=== PATIENT | female | born 1955 | race Caucasian/White ===

== ENCOUNTER → 2016-08-28 | Outpatient (CLI) | payer OTHER ==
[~2016-08-28] MED LIST: ASPIRIN E.C. 8181 MG PO; CARDIZEM 30MG T30 MG PO; GLUCOTROL10 MG PO; LANTUS100 U/ML SQ; LIPITOR 40MG TA40 MG PO; MICARDIS HCT 121 TAB PO; MICARDIS80 MG PO; NORCO 325 MG-51 TAB PO; TANZEUM SQ; ZOCOR 40MG40 MG PO
== END ==
LOC: COL.RAD 11:27
DX: N18.3 Chronic kidney disease, stage 3 (moderate) (principal); N13.39 Other hydronephrosis

== ENCOUNTER → 2016-11-06 | Outpatient (CLI) | payer OTHER | LOC: COL.RAD 08:30 | DX: N28.89 Other specified disorders of kidney and ureter (principal); N30.21 Other chronic cystitis with hematuria ==

== ENCOUNTER → 2017-01-04 | Outpatient (CLI) | payer OTHER | LOC: MC.RAD 13:19 | DX: Z12.31 Encounter for screening mammogram for malignant neoplasm of breast (principal) ==

== ENCOUNTER → 2017-06-02 | Outpatient (REF) ==
[2017-06-02 09:52] LABS: CALCIUM 10.2 mg/dL (8.4-10.2); CREATININE, serum 1.7 mg/dL (0.52-1.25); POTASSIUM 4.8 mmol/L (3.4-5.0)
== END ==
LOC: ZMSC 09:34
PROVIDERS: Orthopaedic Surgery Sports Medicine
DX: Z01.89 Encounter for other specified special examinations (principal)

== ENCOUNTER → 2017-07-01 | Outpatient (CLI) | payer OTHER | LOC: COL.RAD 12:00 | DX: E04.2 Nontoxic multinodular goiter (principal); E03.9 Hypothyroidism, unspecified ==

== ENCOUNTER → 2017-07-09 | Outpatient (CLI) | payer OTHER | LOC: COL.RAD 08:15 | DX: E03.9 Hypothyroidism, unspecified (principal); E04.1 Nontoxic single thyroid nodule | CPT/HCPCS: A9500 ==

== ENCOUNTER → 2017-07-13 | Outpatient (CLI) | payer OTHER | LOC: COL.RAD | DX: Z13.29 Encounter for screening for other suspected endocrine disorder (principal) | CPT/HCPCS: A9516 ==

== ENCOUNTER → 2021-03-19 | Outpatient (CLI) | payer OTHER | LOC: MC.RAD 13:19 | DX: Z12.31 Encounter for screening mammogram for malignant neoplasm of breast (principal); N64.89 Other specified disorders of breast ==

== ENCOUNTER → 2021-03-27 | Outpatient (CLI) | payer OTHER | LOC: MC.RAD 12:41 | DX: N64.89 Other specified disorders of breast (principal) ==

== ENCOUNTER → 2021-04-08 | Outpatient (CLI) | payer OTHER, MEDICARE | LOC: MC.RAD 09:42 | DX: N63.20 Unspecified lump in the left breast, unspecified quadrant (principal); Z98.82 Breast implant status ==

== ENCOUNTER → 2021-04-29 | Outpatient (CLI) | payer OTHER, MEDICARE ==
[~2021-04-29] MED LIST changes: +CRESTOR 10MG10 MG PO; +FARXIGA10 PO; +HCTZ12.5TAB PO; +MASON NATURAL2000 IU PO; +MICARDIS40 MG PO; +TAPAZOLE5 MG PO; +TIAZAC120 MG PO; +TRULICITY1.5 MG/0.5 SQ; +ZETIA 10MG TAB10 MG PO
== END ==
LOC: MC.RAD 13:34
DX: C50.412 Malignant neoplasm of upper-outer quadrant of left female breast (principal)
CPT/HCPCS: A9520

== ENCOUNTER 2021-04-30 10:03 | Day surgery (SDC) | payer OTHER, MEDICARE ==
[~2021-04-30] VITALS: Ht 160 cm; Wt 96.0 kg
[~2021-04-30 10:03] MED LIST changes: -CRESTOR 10MG10 MG PO; -FARXIGA10 PO; -HCTZ12.5TAB PO; -MASON NATURAL2000 IU PO; -MICARDIS40 MG PO; -TAPAZOLE5 MG PO; -TIAZAC120 MG PO; -TRULICITY1.5 MG/0.5 SQ; -ZETIA 10MG TAB10 MG PO
[2021-04-30 11:58] VITALS: BP 147/77; PULSE 92; TEMP 98.1
[2021-04-30] MEDS ORDERED: ZETIA 10MG TAB10 MG PO (12:05)
[2021-04-30] MEDS ORDERED: TAPAZOLE5 MG PO (12:05)
[2021-04-30] MEDS ORDERED: MASON NATURAL2000 IU PO (12:06)
[2021-04-30] MEDS ORDERED: FARXIGA10 PO (12:06)
[2021-04-30] MEDS ORDERED: LANTUS100 U/ML SQ (12:07)
[2021-04-30] MEDS ORDERED: HCTZ12.5TAB PO (12:07)
[2021-04-30] MEDS ORDERED: TRULICITY1.5 MG/0.5 SQ (12:08)
[2021-04-30] MEDS ORDERED: CRESTOR 10MG10 MG PO (12:08)
[2021-04-30] MEDS ORDERED: MICARDIS40 MG PO (12:08)
[2021-04-30] MEDS ORDERED: TIAZAC120 MG PO (12:09)
[2021-04-30] MEDS ORDERED: NORCO 325 MG-51 TAB PO (15:05)
[2021-04-30 15:22] VITALS: TEMP 99.2
[2021-04-30 15:35] VITALS: BP 130/63; PULSE 78
--- NOTE | 2021-04-30 15:35 | NUR ---
Patient returns to room 2 per cart from PACU accompanied by Nydia OLSEN and patient is awake and alert. Dressing clean and dry on the left upper breast. IV fluids infusing. Siderails up x2 and call light in reach. Temp 98.0 Sats 98%. Siderails up x2 and call light in reach. Spouse in room.
[2021-04-30 15:50] VITALS: BP 102/65; PULSE 77
--- NOTE | 2021-04-30 15:50 | NUR ---
Resting with eyes closed and not disturbed. Spouse at bedside.
[2021-04-30 16:05] VITALS: BP 118/59; PULSE 79
--- NOTE | 2021-04-30 16:05 | NUR ---
Tolerated toast and is sipping on ice water. States tip of tongue is burning. Gets relief sipping on cold fluids.
[2021-04-30 16:20] VITALS: BP 122/60; PULSE 81
--- NOTE | 2021-04-30 16:20 | NUR ---
Assisted up to the bathroom. IV to INT. Tolerates activity well. Voids and returns to room. INT discontinued and site is clear. Patient dresses self.
--- NOTE | 2021-04-30 16:25 | NUR ---
Dismissal instructions given and signed.
--- NOTE | 2021-04-30 16:33 | NUR ---
Patient dismissed to home driven by spouse and taken to the front door per wheelchair and assisted into vehicle with instructions in hand.
== END 2021-04-30 16:33 | disposition home or self-care (01) ==
LOC: SDCO 10:03
DX: C50.412 Malignant neoplasm of upper-outer quadrant of left female breast (principal); Z17.1 Estrogen receptor negative status [ER-]; I12.9 Hypertensive chronic kidney disease with stage 1 through stage 4 chronic kidney disease, or unspecified chronic kidney disease; E11.22 Type 2 diabetes mellitus with diabetic chronic kidney disease; N18.4 Chronic kidney disease, stage 4 (severe); Z79.4 Long term (current) use of insulin; E78.00 Pure hypercholesterolemia, unspecified; M19.90 Unspecified osteoarthritis, unspecified site; E11.42 Type 2 diabetes mellitus with diabetic polyneuropathy; G47.33 Obstructive sleep apnea (adult) (pediatric); Z80.3 Family history of malignant neoplasm of breast; Z80.42 Family history of malignant neoplasm of prostate
CPT/HCPCS: A4648; J0690; J1100; J2250; J2405; J2704; J2795; J3010; J7030; J7042

== ENCOUNTER 2021-05-20 06:17 | Day surgery (SDC) | payer OTHER, MEDICARE ==
[~2021-05-20] VITALS: Ht 160 cm; Wt 97.5 kg
[~2021-05-20 06:17] MED LIST changes: +CRESTOR 10MG10 MG PO; +FARXIGA10 PO; +HCTZ12.5TAB PO; +MASON NATURAL2000 IU PO; +MICARDIS40 MG PO; +TAPAZOLE5 MG PO; +TIAZAC120 MG PO; +TRULICITY1.5 MG/0.5 SQ; +ZETIA 10MG TAB10 MG PO
--- NOTE | 2021-05-20 06:30 | NUR ---
65 year old [place] admitted [place] [facility] [place] Patient is alert and oriented x3. is present and in the waiting room. Medications and HX completed. Procedure verified and consent signed. Patient verbalized understanding of procedure. Physical assessment completed, see physical assessment. Patient used the bathroom before changing into a clean gown. Warm blanket provided. IV started in R hand on first attempt with 20G. NS infusing without difficulty. Patient has a L sided arm restriction from prior breast surgery. was brought into the room and denied having any questions for the RN. Side rails x2. First and last name + verified with the patient. Vitals obtained. Call pennington is at bedside. Non-slip socks are on.
--- NOTE | 2021-05-20 07:00 | NUR ---
L arm restriction placed due to prior procedure.
[2021-05-20 07:20] VITALS: BP 122/59; PULSE 80; TEMP 98.1
[2021-05-20] MEDS ORDERED: ERGOCALCIFER50000 IU PO (07:20)
[2021-05-20 09:23] VITALS: BP 143/79; PULSE 86; TEMP 97.5
--- NOTE | 2021-05-20 09:23 | NUR ---
Patient arrived on a cart from the OR after recieving moderate sedation. Vitals obtained. Patient is drowsy and gasps in intervals, however her O2 stats remain at 98 % to 100 % on room air. Patient responds to her name, however she mumbles answers. Call pennington is at bedside. Side rails x2. is present in room. Teja Nguyen is monitoring the patient. RN to monitor in protocol intervals.
[2021-05-20 09:38] VITALS: BP 152/72; PULSE 66
--- NOTE | 2021-05-20 09:38 | NUR ---
Patient is more alert and can answer questions, however she continues to sleep unless stimulated. Vitals obtained. Will continue to monitor per intervals. Side rails x2
[2021-05-20 09:52] VITALS: BP 160/77; PULSE 88
--- NOTE | 2021-05-20 09:52 | NUR ---
Patient continues to sleep. Vitals obtained. Call pennington is within reach.
[2021-05-20 10:07] VITALS: BP 150/68; PULSE 89
--- NOTE | 2021-05-20 10:07 | NUR ---
Patient is awake and oriented. She is tolerating ice water well and denies neasea. Warm blanket provided. Vitals obatined. Patient requested plain wheat toast.
--- NOTE | 2021-05-20 10:15 | NUR ---
Patient is tolerating the toast well and expressed desire to be discharged.
[2021-05-20 10:37] VITALS: BP 158/72; PULSE 84
--- NOTE | 2021-05-20 10:37 | NUR ---
Vitals obtained. IV discontinued at this time due to impending discharge. Catheter tip intact. Pressure dressing applied. No swelling or redness noted. Patient denies pain. Patient denied needing assistance to change into her personal clothes. is willing to help. Patient was assisted to bedside and stool without difficulty.
--- NOTE | 2021-05-20 10:50 | NUR ---
Discharge instructions and educational material was reviewed at this time. Port-a-cath information was also reviewed and ID card was given to the patients . Patient verbalized understanding of the information and signed the related paperwork. Discharge packet was given to the .
--- NOTE | 2021-05-20 11:20 | NUR ---
Patient was escorted out to the patient entrence by PRETTY Elder via wheelchair. Patient has her personal belongings and her has the discharge information in hand. Patient was transferred into the care of her , who is present to drive. Patient is in the front passanger seat and has her seat belt on. Both denied further questions or concerns.
== END 2021-05-20 11:20 | disposition home or self-care (01) ==
LOC: SDCO 06:17
DX: C50.412 Malignant neoplasm of upper-outer quadrant of left female breast (principal); E11.22 Type 2 diabetes mellitus with diabetic chronic kidney disease; I12.9 Hypertensive chronic kidney disease with stage 1 through stage 4 chronic kidney disease, or unspecified chronic kidney disease; N18.4 Chronic kidney disease, stage 4 (severe); E11.40 Type 2 diabetes mellitus with diabetic neuropathy, unspecified; E11.319 Type 2 diabetes mellitus with unspecified diabetic retinopathy without macular edema; E11.39 Type 2 diabetes mellitus with other diabetic ophthalmic complication; H42 Glaucoma in diseases classified elsewhere; I34.0 Nonrheumatic mitral (valve) insufficiency; H40.9 Unspecified glaucoma; E78.00 Pure hypercholesterolemia, unspecified; E05.90 Thyrotoxicosis, unspecified without thyrotoxic crisis or storm; Z79.4 Long term (current) use of insulin; Z79.899 Other long term (current) drug therapy; Z79.84 Long term (current) use of oral hypoglycemic drugs
CPT/HCPCS: C1788; J0690; J1644; J1885; J2250; J2405; J2704; J3010; J7030

== ENCOUNTER 2021-07-30 09:00 | Outpatient (RCR) | payer OTHER, MEDICARE ==
[2021-07-30] VITALS (10 sets, daily range): BP systolic 98–130; BP diastolic 53–68; PULSE 70–89; TEMP 97.7–99.1
[~2021-07-30] VITALS: Ht 160 cm; Wt 98.2 kg
[~2021-07-30 09:00] MED LIST changes: +ERGOCALCIFER50000 IU PO
[2021-07-30] MEDS ORDERED: MAGNESIUM200 MG PO (10:12)
--- NOTE | 2021-07-30 13:40 | NUR ---
Port deaccessed, covered with bandaid. She is assisted out to 's car by wheelchair.
== END 2021-07-30 14:00 | disposition home or self-care (01) ==
LOC: EUO 09:00
PROVIDERS: Internal Medicine Medical Oncology
DX: C50.412 Malignant neoplasm of upper-outer quadrant of left female breast (principal)
CPT/HCPCS: J1644; J7050; P9016

== ENCOUNTER → 2021-08-20 | Outpatient (CLI) | payer OTHER, MEDICARE ==
[~2021-08-20] MED LIST changes: +MAGNESIUM200 MG PO
== END ==
LOC: COL.RAD 09:06
DX: K82.0 Obstruction of gallbladder (principal); K82.8 Other specified diseases of gallbladder; C50.412 Malignant neoplasm of upper-outer quadrant of left female breast; Z17.1 Estrogen receptor negative status [ER-]

== ENCOUNTER 2021-09-10 09:00 | Outpatient (RCR) | payer OTHER, MEDICARE ==
[2021-09-10] VITALS (10 sets, daily range): BP systolic 102–145; BP diastolic 65–84; PULSE 78–90; TEMP 97.5–98.4
[~2021-09-10] VITALS: Ht 160 cm; Wt 93.1 kg
[2021-09-10] MEDS ORDERED: SEMGLEE (Y100 UNIT/2 SQ (10:41)
--- NOTE | 2021-09-10 14:15 | NUR ---
Pt tolerated 2 unit PRBC tranfusions without incident, vital signs remained stable; pt verbalized comfort in discharging; nurse assisted pt to wheelchair to restroom, pt had steady gait and balance and denied dizziness; R chest port heparinized and discontinued without incidient; pt discharged to private POV with at 1415.
== END 2021-09-12 13:25 | disposition home or self-care (01) ==
LOC: EUO 09:00
DX: C50.412 Malignant neoplasm of upper-outer quadrant of left female breast (principal); D64.9 Anemia, unspecified
CPT/HCPCS: J1644; J7050; P9016

== ENCOUNTER → 2021-11-13 | Outpatient (CLI) | payer OTHER, MEDICARE ==
[~2021-11-13] MED LIST changes: +SEMGLEE (Y100 UNIT/2 SQ
== END ==
LOC: MC.RAD 07:31
DX: C50.412 Malignant neoplasm of upper-outer quadrant of left female breast (principal)

== ENCOUNTER → 2022-03-26 | Outpatient (CLI) | payer OTHER, MEDICARE | LOC: MC.RAD 08:11 | DX: Z85.3 Personal history of malignant neoplasm of breast (principal); Z92.21 Personal history of antineoplastic chemotherapy ==